=== PATIENT | female | born 1935 | race Caucasian/White ===

== ENCOUNTER 2022-10-01 23:56 | Observation (INO) | payer MEDICARE, OTHER ==
[2022-10-02 02:38] VITALS: BMI 19.8
[2022-10-02] MEDS ORDERED: Ondansetron PF 4 MG/2 ML Vial IVP PRN (04:02)
[2022-10-02] MEDS ORDERED: Dextrose 5% in Water 1,000 ML IV PRN (04:02)
[2022-10-02] MEDS ORDERED: Promethazine HCl 25 MG/ML VIAL IM PRN (04:02)
[2022-10-02] MEDS ORDERED: Insulin Regular 300 UNITS/3 ML VIAL SC PRN (04:02)
[2022-10-02] MEDS ORDERED: Dextrose 50% Abboject 50 ML SYRINGE SLOW IVP PRN (04:02)
[2022-10-02] MEDS ORDERED: TETANUS, DIPHTHERIA TOX,ADULT (TDVAX) 0.5 ML VIAL IM ONE (04:02)
[2022-10-02] MEDS ORDERED: Morphine 4 MG/ML VIAL SLOW IVP PRN (04:10)
[2022-10-02] MEDS ORDERED: Rib Fracture Protocol IV SCH (04:15)
[2022-10-02] MEDS: Sodium Chloride 0.9% 1,000 ML IV SCH ×2 (05:30→13:59)
[2022-10-02] MEDS: Ketorolac Tromethamine 30 MG/ML VIAL IVP SCH ×2 (06:08→13:59)
[2022-10-02] MEDS: Acetaminophen 500 MG TAB PO SCH ×2 (06:09→14:15)
[2022-10-02] MEDS: Acetaminophen 650 MG Suppository PR SCH ×2 (08:52→13:59)
[2022-10-02] MEDS ORDERED: Famotidine/PF 20 mg/2ml Vial SLOW IVP SCH (09:00)
[2022-10-02 13:11] VITALS: BP 124/66; TEMP 99
== END 2022-10-02 16:15 | disposition home or self-care (01) ==
LOC: INTOOBSV 23:56 → SJJU 23:56
PROVIDERS: ADMIT Specialist; ATTEND Specialist
DX: S06.5XAA Traumatic subdural hemorrhage with loss of consciousness status unknown, initial encounter (principal); S01.01XA Laceration without foreign body of scalp, initial encounter; I44.0 Atrioventricular block, first degree; Z79.01 Long term (current) use of anticoagulants; Z79.84 Long term (current) use of oral hypoglycemic drugs; Z79.890 Hormone replacement therapy; Z79.899 Other long term (current) drug therapy; Z88.0 Allergy status to penicillin; W18.30XA Fall on same level, unspecified, initial encounter
CPT/HCPCS: 70450; 96374; 96375; 97530; G0378; J1885; J7050; S0028

== ENCOUNTER 2022-10-14 03:16 | Inpatient (IN) | payer MEDICARE, OTHER ==
[2022-10-14] MEDS ORDERED: Ondansetron ODT 4 MG TAB PO PRN (04:28)
[2022-10-14] MEDS ORDERED: Ondansetron PF 4 MG/2 ML Vial IVP PRN (04:28)
[2022-10-14] MEDS ORDERED: Dextrose 50% Abboject 50 ML SYRINGE SLOW IVP PRN (04:28)
[2022-10-14] MEDS ORDERED: TETANUS, DIPHTHERIA TOX,ADULT (TDVAX) 0.5 ML VIAL IM ONE (04:28)
[2022-10-14] MEDS ORDERED: Acetaminophen 325 MG TAB PO PRN (04:28)
[2022-10-14] MEDS ORDERED: Dextrose 5% in Water 1,000 ML IV PRN (04:28)
[2022-10-14] MEDS ORDERED: Labetalol HCl 100 MG/20 ML VIAL SLOW IVP PRN (04:34)
[2022-10-14 04:35] VITALS: BMI 20.1
[2022-10-14] MEDS ORDERED: hydrALAZINE 20 MG/ML VIAL SLOW IVP PRN (04:37)
[2022-10-14] MEDS ORDERED: Sodium Chloride 0.9% 1,000 ML IV SCH (05:15)
[2022-10-14 05:56] LABS: Bacteria/HPF 2+ HPF (None Seen); Bilirubin Negative (Negative); Blood, Urine 1+ (Negative); Clarity Clear (Clear); Glucose, Urine (Dipstick) Greater than 1000 mg/dL (Negative); Ketone, Urine Trace mg/dL (Negative); Leukocyte 75 Leu/uL (Negative); Nitrite Negative (Negative); Protein, Urine (Dipstick) 30 mg/dL (Neg-Trace); RBC/HPF 0-3 HPF (0-3); Specific Gravity, Urine 1.024 (1.002-1.036); Squamous Epithelial 0-3 HPF (0-3); Urobilinogen Normal mg/dL (Less than 2); pH, Urine 5.5 (5.0-9.0)
[2022-10-14] MEDS: Levothyroxine Sodium 75 MCG TAB PO SCH (06:24)
[2022-10-14] MEDS: Rosuvastatin 10 MG TAB PO SCH (08:07)
[2022-10-14] MEDS: Famotidine 20 MG TAB PO SCH (08:07)
[2022-10-14 08:18] LABS: Anion Gap 14 mmol/L (10-20); BUN (Urea Nitrogen) 24 mg/dL (9.8-20.1); Calc. Creatinine Clearance 25 mL/min (70-130); Calcium 9.2 mg/dL (7.8-10.44); Carbon Dioxide 23 mmol/L (23-31); Chloride 105 mmol/L (98-107); Estimated GFR 32; Glucose 181 mg/dL (83-110); Magnesium 1.8 mg/dL (1.6-2.6); Phosphorus 2.7 mg/dL (2.3-4.7); Potassium 3.9 mmol/L (3.5-5.1); Sodium 138 mmol/L (136-145)
[2022-10-14 12:19] LABS: Hemoglobin 10.1 g/dL (12.0-16.0); Mean Corpuscular HGB CONC 32.5 g/dL (32.0-36.0); Mean Corpuscular Hemoglobin 33.7 pg (27.0-31.0); Mean Platelet Volume 6.5 fL (7.4-10.4); Platelet Count 277 10x3/uL (130-400); RBC Distribution Width 12.5 % (11.5-14.5); Red Blood Cell (RBC) Count 2.99 mill/uL (4.20-5.40); White Blood Cell (WBC) Count 11.8 10x3/uL (4.8-10.8)
[2022-10-14 12:50] LABS: Band 6 % (5-11); Lymphocytes 11 % (21-51); MDiff Complete? YES; Macrocytosis SLIGHT = 6-15 cells (100X) (0-5/hpf); Monocytes 6 % (0-10); Neutrophil 77 % (42-75); Platelet Morphology Comment Appears Adequate; Polychromasia SLIGHT = 2-3 cells (100X) (0-2/hpf)
[2022-10-14] MEDS ORDERED: cefTRIAXone\\ROCEPHIN 2 GM in Sodium Chloride 0.9% 100 ML IVPB SCH (18:00)
[2022-10-14] MEDS ORDERED: Nitrofurantoin Monohyd/M-Cryst 100 MG CAP PO SCH (21:00)
[2022-10-14] MEDS ORDERED: diphenhydrAMINE 50 MG/ML VIAL IVP SCH ×2 (21:15→21:30)
[2022-10-14] MEDS ORDERED: Haloperidol Lactate 5 MG/ML VIAL SLOW IVP SCH (21:15)
[2022-10-14] MEDS ORDERED: Melatonin 3 MG TAB PO SCH (21:30)
[2022-10-15] MEDS: Levothyroxine Sodium 75 MCG TAB PO SCH (05:09)
[2022-10-15] MEDS ORDERED: Dextrose 5% in Water 1,000 ML IV PRN (06:23)
[2022-10-15] MEDS ORDERED: Dextrose 50% Abboject 50 ML SYRINGE SLOW IVP PRN (06:23)
[2022-10-15] MEDS: Insulin Regular 300 UNITS/3 ML VIAL SC PRN ×3 (06:32→16:52)
[2022-10-15] MEDS: Famotidine 20 MG TAB PO SCH (08:22)
[2022-10-15] MEDS: Rosuvastatin 10 MG TAB PO SCH (08:22)
[2022-10-15 09:07] LABS: Hemoglobin 12.2 g/dL (12.0-16.0); Mean Corpuscular HGB CONC 33.9 g/dL (32.0-36.0); Mean Platelet Volume 6.3 fL (7.4-10.4); Platelet Count 400 10x3/uL (130-400); RBC Distribution Width 12.4 % (11.5-14.5); Red Blood Cell (RBC) Count 3.58 mill/uL (4.20-5.40); White Blood Cell (WBC) Count 16.7 10x3/uL (4.8-10.8)
[2022-10-15 09:29] LABS: Anion Gap 17 mmol/L (10-20); BUN (Urea Nitrogen) 25 mg/dL (9.8-20.1); Calc. Creatinine Clearance 27 mL/min (70-130); Calcium 9.7 mg/dL (7.8-10.44); Carbon Dioxide 21 mmol/L (23-31); Chloride 104 mmol/L (98-107); Estimated GFR 39; Glucose 189 mg/dL (83-110); Phosphorus 1.7 mg/dL (2.3-4.7); Potassium 3.5 mmol/L (3.5-5.1); Sodium 138 mmol/L (136-145)
[2022-10-15 09:52] LABS: #Lymphocytes 1.2 thou/uL (1.20-3.40); #Monocytes 0.9 thou/uL (0.11-0.59); #Neutrophils 14.6 thou/uL (1.40-6.50); %Basophils 0.1 % (0.0-1.0); %Eosinophils 0.1 % (0.0-10.0); %Lymphocytes 7.1 % (21.0-51.0); %Monocytes 5.3 % (0.0-10.0); %Neutrophils 87.4 % (42.0-75.0); Band 5 % (5-11); Lymphocytes 12 % (21-51); MDiff Complete? YES; Monocytes 4 % (0-10); Myelocyte 1 % (0-0); Neutrophil 78 % (42-75); Platelet Morphology Comment Appears Adequate; Polychromasia SLIGHT = 2-3 cells (100X) (0-2/hpf)
[2022-10-15] MEDS ORDERED: Potassium Phosphate 30 MMOL in Sodium Chloride 0.9% 250 ML 250 ML IVPB SCH (12:15)
[2022-10-15] MEDS: Cefepime 1 GM in Sodium Chloride 0.9% 100 ML IVPB SCH ×2 (12:16→23:49)
[2022-10-15] MEDS ORDERED: cefTRIAXone\\ROCEPHIN 2 GM in Sodium Chloride 0.9% 100 ML IVPB SCH (18:00)
[2022-10-15] MEDS ORDERED: Insulin Glargine 30 UNITS/0.3 ML VIAL SC SCH (21:00)
[2022-10-15] MEDS ORDERED: Melatonin 3 MG TAB PO SCH (21:00)
[2022-10-16] MEDS: Insulin Regular 300 UNITS/3 ML VIAL SC PRN ×3 (01:53→13:58)
[2022-10-16] MEDS: Levothyroxine Sodium 75 MCG TAB PO SCH (05:36)
[2022-10-16 05:37] LABS: #Lymphocytes 0.9 thou/uL (1.20-3.40); #Monocytes 0.8 thou/uL (0.11-0.59); #Neutrophils 13.1 thou/uL (1.40-6.50); %Eosinophils 0.1 % (0.0-10.0); %Monocytes 5.5 % (0.0-10.0); %Neutrophils 88.5 % (42.0-75.0); Hemoglobin 10.9 g/dL (12.0-16.0); Mean Corpuscular Hemoglobin 33.3 pg (27.0-31.0); Mean Platelet Volume 6.5 fL (7.4-10.4); Platelet Count 391 10x3/uL (130-400); RBC Distribution Width 12.4 % (11.5-14.5); Red Blood Cell (RBC) Count 3.26 mill/uL (4.20-5.40); White Blood Cell (WBC) Count 14.8 10x3/uL (4.8-10.8)
[2022-10-16 06:00] LABS: Anion Gap 17 mmol/L (10-20); BUN (Urea Nitrogen) 29 mg/dL (9.8-20.1); Calc. Creatinine Clearance 28 mL/min (70-130); Calcium 9.4 mg/dL (7.8-10.44); Carbon Dioxide 23 mmol/L (23-31); Chloride 109 mmol/L (98-107); Estimated GFR 41; Glucose 252 mg/dL (83-110); Magnesium 2.2 mg/dL (1.6-2.6); Phosphorus 2.7 mg/dL (2.3-4.7); Potassium 3.8 mmol/L (3.5-5.1); Sodium 145 mmol/L (136-145)
[2022-10-16] MEDS ORDERED: cefTRIAXone\\ROCEPHIN 2 GM in Sodium Chloride 0.9% 100 ML IVPB SCH (08:00)
[2022-10-16] MEDS: Famotidine 20 MG TAB PO SCH (08:30)
[2022-10-16] MEDS: Rosuvastatin 10 MG TAB PO SCH (08:30)
[2022-10-16 13:06] VITALS: BP 123/75; TEMP 97.8
[2022-10-17] MEDS ORDERED: FLU VACC QS2022-23(65YR UP)/PF 240 MCG/0.7 ML SYRINGE IM ONE (09:00)
== END 2022-10-16 16:15 | DRG 83 ==
LOC: UNDOADMIN 03:39 → CCU 03:39 → SURG A 11:55
PROVIDERS: ADMIT Specialist; ATTEND Specialist
DX: S06.5XAA Traumatic subdural hemorrhage with loss of consciousness status unknown, initial encounter (principal); I13.0 Hypertensive heart and chronic kidney disease with heart failure and stage 1 through stage 4 chronic kidney disease, or unspecified chronic kidney disease; N17.9 Acute kidney failure, unspecified; N39.0 Urinary tract infection, site not specified; Z20.822 Contact with and (suspected) exposure to COVID-19; E78.5 Hyperlipidemia, unspecified; E11.22 Type 2 diabetes mellitus with diabetic chronic kidney disease; M19.90 Unspecified osteoarthritis, unspecified site; I48.91 Unspecified atrial fibrillation; I25.10 Atherosclerotic heart disease of native coronary artery without angina pectoris; F03.A0 Unspecified dementia, mild, without behavioral disturbance, psychotic disturbance, mood disturbance, and anxiety; W18.30XA Fall on same level, unspecified, initial encounter; Z95.1 Presence of aortocoronary bypass graft; Z88.0 Allergy status to penicillin; Z79.84 Long term (current) use of oral hypoglycemic drugs; Z79.890 Hormone replacement therapy; Z79.899 Other long term (current) drug therapy
CPT/HCPCS: 36415; 36416; 70450; 71045; 80048; 81003; 81015; 83735; 84100; 85025; 87040; 87077; 87086; 87186; 90714; J0692; J0696; J1200; J1630; J1815; J3490; J7050

== ENCOUNTER 2022-11-11 13:30 | Outpatient (CLI) | payer MEDICARE, OTHER | END 2022-11-11 13:31 | disposition home or self-care (01) | LOC: CT 13:30 | PROVIDERS: ATTEND Physician Assistant | DX: S06.5XAD Traumatic subdural hemorrhage with loss of consciousness status unknown, subsequent encounter (principal) | CPT/HCPCS: 70450 ==